=== PATIENT | male | born 1965 | race African-American/Black ===

== ENCOUNTER 2016-09-03 22:39 | Emergency (ER) | payer BC ==
--- NOTE | ~2016-09-03 | EKG ---
PATIENT: AMEYA QUESADA UNIT #: [id number] Ventricular Rate: 88 BPM Atrial Rate: 88 BPM P-R Interval: 144 ms QRS Duration: 82 ms Q-T Interval: 354 ms QTC Calculation(Bezet): 428 ms P Henry: 39 degrees Calculated R Henry: 20 degrees Calculated T Henry: -23 degrees Diagnosis Line: Sinus rhythm with Premature atrial complexes Diagnosis Line: Nonspecific T wave abnormality Diagnosis Line: Abnormal ECG Diagnosis Line: When compared with ECG of 22-NOV-2015 09:20, Diagnosis Line: Premature ventricular complexes are no longer Diagnosis Line: Present Diagnosis Line: Premature atrial complexes are now Present Diagnosis Line: QT has shortened Diagnosis Line: Confirmed by KAREL GA, GEETA ([id number]) on 09/05/2016 Diagnosis Line: 7:45:12 PM INTERPRETING MD: KAREL GA
--- NOTE | ~2016-09-03 | CR72 ---
[facility] A Service of [facility] RADIOLOGY TEXT RESULTS PATIENT: AMEYA QUESADA JR LOCATION: [facility] : 63 UNIT #: [id number] AGE: [address]: Zachary Browning MD SEX: M ORDER DR: [id number] [facility] [address] [place], [place] [address] [id number] E MR#: [id number] #: [id number] NAME: AMEYA QUESADA JR : 1965 SEX: M STUDY DATE/TIME: 09/04/2016 22:42 UNIT: [facility] ROOM: STUDY DESCRIPTION: CR Chest Single View Portable Attending Physician: Zachary Browning Ordering Physician: Ed Doctor [id number] [facility] Primary Care Physician: Brent Butler M.D. MEDICAL IMAGING REPORT This report is preliminary unless electronic signature is present EXAM Portable chest 09/03 at 22:42 INDICATIONS Shortness of air today. History of hypertension. FINDINGS AP portable chest compared to 11/22/2015. Cardiac and mediastinal contours are normal. Lungs are clear except for granulomatous calcifications in the left upper lobe. No pneumothorax. IMPRESSION No active disease and no change from prior. Dictated by... Yung Montague Jr., M.D. THIS IS AN ELECTRONICALLY VERIFIED REPORT Yung Montague Jr., M.D. at 09/04/2016 9:23 PM KAUSHAL/fe TD: 09/04/2016 09:01 JOB #: 1 MEDICAL IMAGING REPORT Page 1 of 1 COPY
--- NOTE | ~2016-09-03 | CT16 ---
[facility] A Service of [facility] RADIOLOGY TEXT RESULTS PATIENT: AMEYA QUESADA JR LOCATION: [facility] : 63 UNIT #: [id number] AGE: [address]: Zachary Browning MD SEX: M ORDER DR: [id number] [facility] [address] [place] [address] [place], [place] [address] [id number] E MR#: [id number] Acc #: [id number] NAME: AMEYA QUESADA JR : 1965 SEX: M STUDY DATE/TIME: 09/04/2016 0009 UNIT: [facility] ROOM: STUDY DESCRIPTION: CT Angio Chest for PE Attending Physician: Dominguez Browning M.D. Ordering Physician: Dominguez Browning M.D. Primary Care Physician: Brent Butler M.D. MEDICAL IMAGING REPORT This report is preliminary unless electronic signature is present EXAM Chest CTA, 09/04 at 0009 hours. INDICATION Shortness of air, cough and clamminess for 1 day. History of hypertension. Patient has an elevated D-dimer level today of 928. TECHNIQUE Axial images were obtained through the chest following IV contrast administration. 3-D reformats were obtained. This CT exam was performed with one or more of the following radiation dose reduction techniques: automatic exposure control, adjustment of mA and/or kV according to patient size, and iterative reconstruction. COMPARISON STUDIES Comparison made with 11/30/2013. FINDINGS The contrast bolus timing is suboptimal. However, no pulmonary embolism is seen. There is no aortic dissection. There is coronary artery disease. There is no pleural or pericardial effusion. There is no adenopathy. Granulomatous calcifications are present in the left upper lobe. The lungs otherwise are clear. Upper abdomen demonstrates hepatic steatosis. IMPRESSION 1. Bolus timing is suboptimal, but no pulmonary embolism or aortic dissection identified. 2. No active disease in the chest. 3. Coronary artery disease. 4. Hepatic steatosis. [facility] A Service of [facility] RADIOLOGY TEXT RESULTS PATIENT: AMEYA QUESADA JR LOCATION: [facility] : 63 UNIT #: [id number] AGE: [address]: Zachary Browning MD SEX: M ORDER DR: Dictated by... Yung Montague Jr., M.D. THIS IS AN ELECTRONICALLY VERIFIED REPORT Yung Montague Jr., M.D. at 09/04/2016 9:24 PM KAUSHAL/soto TD: 09/04/2016 09:23 JOB #: [id number] MEDICAL IMAGING REPORT Page 1 of 1 COPY
[~2016-09-03 22:39] MED LIST: ACETAMINOPHEN PO; AMLODIPINE BESY10 MG; ASPIRIN81 M1; ASPIRIN81 MG PO; CENTRUM PO; COLCRYS0.6 MG; DESYREL50 MG; DICLOFENAC SODI50 MG; LANTUS100 U/ML SUBQ; LIPITOR20 MG PO; LOPRESSOR PO; METOPROLOL SUCC50 MG; NEXIUM PO; NORVASC10 MG PO; NOVOLOG100 U/ML SUBQ; PRINIVIL20 M1 PO; ULORIC40 MG PO; ZOCOR20 MG PO
[2016-09-03 22:46] LABS: BASOPHIL# 0.1 X10e3 (0-0.3); BASOPHIL% 0.7 % (0-2.5); DIFF IND NO; EOSINOPHIL# 0.3 X10e3 (0-0.7); EOSINOPHIL% 2.5 % (0.0-7.0); HEMATOCRIT 39.5 % (38.0-50.0); LYMPHOCYTE# 3.2 X10e3 (1.0-3.5); LYMPHOCYTE% 27.4 % (17.0-45.0); MEAN CELL VOLUME 96.2 FL (83-96); MEAN CORPUSCULAR HEMOGLOBIN 31.7 PG (28-34); MEAN PLATELET VOLUME 8.7 FL (6.5-11.5); MONOCYTE# 0.7 X10e3 (0-1.0); MONOCYTE% 5.8 % (3.0-12.0); NEUTROPHIL# 7.4 X10e3 (1.5-7.1); NEUTROPHIL% 63.6 % (40-75); PLATELET COUNT 266 X10e3 (140-420); RED BLOOD COUNT 4.11 X10e (3.90-5.60); RED CELL DISTRIBUTION WIDTH 13.5 % (11.0-15.5); WHITE BLOOD COUNT 11.6 X10e3 (4.0-10.5)
[2016-09-03 22:56] LABS: INFLUENZA A NEG (NEG); INFLUENZA B NEG (NEG)
[2016-09-03 23:06] LABS: POC - CKMB 1.5 ng/mL (0.0-7.9); POC - TROPONIN <0.05 ng/mL (<=0.05)
[2016-09-03 23:10] LABS: BUN/CREATININE RATIO 13.33; CALCIUM SERUM 10.7 mg/dL (8.4-10.2); CREATININE SERUM 1.8 mg/dL (0.6-1.4); GLOM FILT RATE Estimated 49.4 mL/min (>60); POTASSIUM 3.6 mmol/L (3.5-5.1)
== END 2016-09-04 01:36 | disposition home or self-care (01) ==
LOC: CED 22:39
PROVIDERS: Emergency Medicine
DX: J20.8 Acute bronchitis due to other specified organisms (principal); E11.9 Type 2 diabetes mellitus without complications; I10 Essential (primary) hypertension; M10.9 Gout, unspecified; F17.210 Nicotine dependence, cigarettes, uncomplicated; Z98.890 Other specified postprocedural states
CPT/HCPCS: 36415; 71010; 71275; 80048; 82553; 83880; 84484; 85025; 85379; 87040; 87804; 93005; 96360; 99284; Q9967